=== PATIENT | female | born 1930 | race Caucasian/White ===

== ENCOUNTER 2018-07-19 09:30 | Outpatient (CLI) | payer MEDICARE, BC ==
[2018-09-27] MEDS ORDERED: LEVO88TA5 PO (06:45)
[2018-09-27] MEDS ORDERED: POLY17PO4 PO ×2 (06:45→08:12)
[2018-09-27] MEDS ORDERED: FOLI1TAB16 PO (06:45)
[2018-09-27] MEDS ORDERED: FURO20TA4 PO (06:45)
[2018-09-27] MEDS ORDERED: PANT40TA4 PO (06:45)
[2018-09-27] MEDS ORDERED: ALLO300T2 PO (06:45)
[2018-09-27] MEDS ORDERED: ATOR10TA PO (06:45)
[2018-09-27] MEDS ORDERED: LORA1TAB PO (06:45)
[2018-09-27] MEDS ORDERED: OXYB5TAB11 PO (06:45)
[2018-09-27] MEDS ORDERED: ESTR1PAT23 TD (06:45)
[2018-09-27] MEDS ORDERED: FOLI0.4T2 PO (08:12)
[2018-09-27] MEDS ORDERED: LINA290C PO (08:12)
[2018-09-27] MEDS ORDERED: OMEG1CAP PO (08:12)
[2018-09-27] MEDS ORDERED: ALBU1.257 IH (08:12)
[2018-09-27] MEDS ORDERED: TIOT4MIS3 IH (08:12)
[2018-09-27] MEDS ORDERED: PSYL3.4P6 PO (08:12)
[2018-09-27] MEDS ORDERED: CHOL100044 PO (08:12)
== END 2018-07-19 23:59 | disposition home or self-care (01) ==
LOC: WOU 09:30
PROVIDERS: ATTEND Podiatrist Foot & Ankle Surgery
DX: S81.812A Laceration without foreign body, left lower leg, initial encounter (principal); L03.116 Cellulitis of left lower limb; M79.662 Pain in left lower leg; W22.8XXA Striking against or struck by other objects, initial encounter; Y92.89 Other specified places as the place of occurrence of the external cause; Z79.82 Long term (current) use of aspirin; Z88.0 Allergy status to penicillin; Z88.8 Allergy status to other drugs, medicaments and biological substances
CPT/HCPCS: 11042; 87070-TC; 87075-TC; A6402; A6452

== ENCOUNTER 2018-07-26 08:00 | Outpatient (CLI) | payer MEDICARE, BC ==
[2018-09-27] MEDS ORDERED: POLY17PO4 PO ×2 (06:45→08:12)
[2018-09-27] MEDS ORDERED: ATOR10TA PO (06:45)
[2018-09-27] MEDS ORDERED: FURO20TA4 PO (06:45)
[2018-09-27] MEDS ORDERED: FOLI1TAB16 PO (06:45)
[2018-09-27] MEDS ORDERED: LORA1TAB PO (06:45)
[2018-09-27] MEDS ORDERED: PANT40TA4 PO (06:45)
[2018-09-27] MEDS ORDERED: LEVO88TA5 PO (06:45)
[2018-09-27] MEDS ORDERED: ALLO300T2 PO (06:45)
[2018-09-27] MEDS ORDERED: OXYB5TAB11 PO (06:45)
[2018-09-27] MEDS ORDERED: ESTR1PAT23 TD (06:45)
[2018-09-27] MEDS ORDERED: LINA290C PO (08:12)
[2018-09-27] MEDS ORDERED: PSYL3.4P6 PO (08:12)
[2018-09-27] MEDS ORDERED: CHOL100044 PO (08:12)
[2018-09-27] MEDS ORDERED: TIOT4MIS3 IH (08:12)
[2018-09-27] MEDS ORDERED: ALBU1.257 IH (08:12)
[2018-09-27] MEDS ORDERED: OMEG1CAP PO (08:12)
[2018-09-27] MEDS ORDERED: FOLI0.4T2 PO (08:12)
== END 2018-07-26 23:59 | disposition home health service (06) ==
LOC: WOU 08:00
PROVIDERS: ATTEND Podiatrist Foot & Ankle Surgery
DX: S81.812A Laceration without foreign body, left lower leg, initial encounter (principal); L03.116 Cellulitis of left lower limb; W22.8XXA Striking against or struck by other objects, initial encounter; Y92.89 Other specified places as the place of occurrence of the external cause; M79.662 Pain in left lower leg; G30.9 Alzheimer's disease, unspecified; F02.80 Dementia in other diseases classified elsewhere, unspecified severity, without behavioral disturbance, psychotic disturbance, mood disturbance, and anxiety
CPT/HCPCS: 11042; A6402; A6452

== ENCOUNTER 2018-07-29 09:06 | Outpatient (CLI) | payer MEDICARE, BC ==
[2018-09-27] MEDS ORDERED: LORA1TAB PO (06:45)
[2018-09-27] MEDS ORDERED: FURO20TA4 PO (06:45)
[2018-09-27] MEDS ORDERED: ALLO300T2 PO (06:45)
[2018-09-27] MEDS ORDERED: ESTR1PAT23 TD (06:45)
[2018-09-27] MEDS ORDERED: FOLI1TAB16 PO (06:45)
[2018-09-27] MEDS ORDERED: POLY17PO4 PO ×2 (06:45→08:12)
[2018-09-27] MEDS ORDERED: ATOR10TA PO (06:45)
[2018-09-27] MEDS ORDERED: LEVO88TA5 PO (06:45)
[2018-09-27] MEDS ORDERED: OXYB5TAB11 PO (06:45)
[2018-09-27] MEDS ORDERED: PANT40TA4 PO (06:45)
[2018-09-27] MEDS ORDERED: OMEG1CAP PO (08:12)
[2018-09-27] MEDS ORDERED: FOLI0.4T2 PO (08:12)
[2018-09-27] MEDS ORDERED: TIOT4MIS3 IH (08:12)
[2018-09-27] MEDS ORDERED: PSYL3.4P6 PO (08:12)
[2018-09-27] MEDS ORDERED: ALBU1.257 IH (08:12)
[2018-09-27] MEDS ORDERED: LINA290C PO (08:12)
[2018-09-27] MEDS ORDERED: CHOL100044 PO (08:12)
== END 2018-07-29 23:59 | disposition home or self-care (01) ==
LOC: WOU 09:06
PROVIDERS: ATTEND Podiatrist Foot & Ankle Surgery
DX: S81.812D Laceration without foreign body, left lower leg, subsequent encounter (principal); X58.XXXD Exposure to other specified factors, subsequent encounter; M79.89 Other specified soft tissue disorders
CPT/HCPCS: 93925; 93970; A6452; Z7610

== ENCOUNTER 2018-08-02 08:15 | Outpatient (CLI) | payer MEDICARE, BC ==
[2018-09-27] MEDS ORDERED: LORA1TAB PO (06:45)
[2018-09-27] MEDS ORDERED: LEVO88TA5 PO (06:45)
[2018-09-27] MEDS ORDERED: POLY17PO4 PO ×2 (06:45→08:12)
[2018-09-27] MEDS ORDERED: FOLI1TAB16 PO (06:45)
[2018-09-27] MEDS ORDERED: ESTR1PAT23 TD (06:45)
[2018-09-27] MEDS ORDERED: PANT40TA4 PO (06:45)
[2018-09-27] MEDS ORDERED: ATOR10TA PO (06:45)
[2018-09-27] MEDS ORDERED: FURO20TA4 PO (06:45)
[2018-09-27] MEDS ORDERED: ALLO300T2 PO (06:45)
[2018-09-27] MEDS ORDERED: OXYB5TAB11 PO (06:45)
[2018-09-27] MEDS ORDERED: FOLI0.4T2 PO (08:12)
[2018-09-27] MEDS ORDERED: PSYL3.4P6 PO (08:12)
[2018-09-27] MEDS ORDERED: TIOT4MIS3 IH (08:12)
[2018-09-27] MEDS ORDERED: LINA290C PO (08:12)
[2018-09-27] MEDS ORDERED: OMEG1CAP PO (08:12)
[2018-09-27] MEDS ORDERED: ALBU1.257 IH (08:12)
[2018-09-27] MEDS ORDERED: CHOL100044 PO (08:12)
== END 2018-08-02 23:59 | disposition home health service (06) ==
LOC: WOU 08:15
PROVIDERS: ATTEND Podiatrist Foot & Ankle Surgery
DX: S81.812D Laceration without foreign body, left lower leg, subsequent encounter (principal); M79.662 Pain in left lower leg; G30.9 Alzheimer's disease, unspecified; F02.80 Dementia in other diseases classified elsewhere, unspecified severity, without behavioral disturbance, psychotic disturbance, mood disturbance, and anxiety; Z88.0 Allergy status to penicillin; Z87.891 Personal history of nicotine dependence; Z91.041 Radiographic dye allergy status; X58.XXXD Exposure to other specified factors, subsequent encounter
CPT/HCPCS: A6402; G0463; Z7610